=== PATIENT | male | born 1950 | race Caucasian/White ===

== ENCOUNTER → 2019-04-01 | Outpatient (CLI) | payer MEDICARE, OTHER ==
[~2019-04-01] MED LIST: ACE3 PO; ASPI-715 PO; CEF300 PO; DEXL60CA6 PO; FIBER PO; FIBER SUPPLEME283 GM PO; FLUT16SP20 NS; GEMF600T91 PO; GLUC-198 PO; GUALA600 PO; HYDR473S4 PO; IBU800 PO; IPRN; ITRA100C9 PO; LISI-357 PO; LYSI500C3 PO; NIA500 PO; OMEG-36 PO; PROAIRPT IH; PROM12.546 PO; RAN150 PO; UBID1CAP PO
== END ==
LOC: LAB 11:30
PROVIDERS: ATTEND Urology
DX: N40.1 Benign prostatic hyperplasia with lower urinary tract symptoms (principal)
CPT/HCPCS: 36415; 84153

== ENCOUNTER → 2019-04-29 | Outpatient (CLI) | payer MEDICARE, OTHER ==
[~2019-04-29] MED LIST changes: +REGADENOSON 0.4 MG/5 ML SYR ONE
--- NOTE | 2019-04-29 16:23 | RADIOLOGY IMAGING REPORT ---
FACILITY: [facility] [place] PATIENT NAME: Jose Collins : 1950 MR: [id number] V: [id number] EXAM DATE: ORDERING PHYSICIAN: ALEN REYNOLDS TECHNOLOGIST: Location: [facility] Patient: Jose Collins : 1950 Visit/Account:[id number] Date of Sevice: 04/29/2019 EXAMINATION: Single isotope SPECT imaging with regadenoson infusion and gated SPECT imaging. DATE OF EXAMINATION: 04/29/2019. DATE OF INTERPRETATION: 04/29/2019. REQUESTING PHYSICIAN: ALEN REYNOLDS. INDICATION: The patient is a 68-year-old female evaluated for shortness of breath. PROCEDURE: After informed consent the patient received an intravenous injection of 12.5 mCi of Tc-99 m sestamibi followed at an appropriate time interval by rest imaging. The patient then subsequently received an intravenous infusion of 0.4 mg of regadenoson per protocol without complication. Resting heart rate was 78 bpm with a peak heart rate of 100 bpm. Blood pressure at rest was 131 / 80 and fo llowing infusion was 133 / 59. Baseline EKG demonstrates sinus rhythm with nonspecific T wave abnorm ality. There were no EKG changes of ischemia following infusion. Symptoms were nonspecific. The pa tient then received an intravenous injection of 30.3 mCi of Tc-99m sestamibi followed by stress imagi ng. RAW DATA: Examination of the summed raw data revealed a fair quality study. MYOCARDIAL PERFUSION: The tomographic images demonstrate normal myocardial perfusion. GATED IMAGES: The gated images demonstrate normal LV wall motion and systolic function, LVEF 64%. IMPRESSION: 1. Nondiagnostic stress ECG performed with Lexiscan 2. Normal myocardial perfusion scan. 3. Normal LV systolic function; LVEF 64%. 4. Based on the results of this exam, the patient appears to be at low risk for future cardiovascular events, the risk becomes intermediate in the long-term estimation was unable to exercise. Report Dictated By: Neisha Schumacher at 04/29/2019 4:06 PM Report E-Signed By: Neisha Schumacher at 04/29/2019 4:15 PM WSN:[id number]
== END ==
LOC: NUC 00:48
PROVIDERS: ATTEND Nurse Practitioner Family
DX: E11.9 Type 2 diabetes mellitus without complications (principal); I10 Essential (primary) hypertension; E66.01 Morbid (severe) obesity due to excess calories; M62.81 Muscle weakness (generalized); R06.00 Dyspnea, unspecified
CPT/HCPCS: 78452; 93017; A9500; J2785

== ENCOUNTER 2019-05-07 00:40 | Day surgery (SDC) | payer MEDICARE, OTHER ==
[2019-04-01 11:53] LABS: PLATELET COUNT, AUTOMATED 284 K/uL (150-450)
[~2019-05-07] VITALS: Ht 177.8 cm; Wt 134.7 kg
[~2019-05-07 00:40] MED LIST changes: +ASPI-1471 PO; +CHOL10005 PO; +CRAN650C PO; +HYDR-2966 PO; +LACT1CAP6 PO; +LISI20TA29 PO; +OMEP40CA48 PO; +PRAV20TA65 PO; -REGADENOSON 0.4 MG/5 ML SYR ONE; +ROPI0.5T25 PO; +ZINC25CA2 PO; +[UNRECOGNIZED DRUG - OTHER] PO
[2019-05-07] MEDS ORDERED: PROPOFOL EMUL(*) 10MG/ML 20 ML 60 ML ONE (06:59)
[2019-05-07] MEDS ORDERED: LIDOCAINE MPF 1% 5 ML VIAL ONE (06:59)
[2019-05-07 07:55] VITALS: BP 139/81
[2019-05-07] MEDS ORDERED: LIDOCAINE/SOD BICARB 8.4% SYR ID ONE (08:00)
[2019-05-07] MEDS ORDERED: NORMOSOL R SOLN(*) 1000 ML BAG 1,000 ML IV PRN (08:00)
[2019-05-07 09:32] VITALS: BP 110/61
--- NOTE | 2019-05-07 09:42 | Short(Outpt) Discharge Summary ---
Discharge Summary Reason for Hosp/Final Diag: (1) Family history of colonic polyps Hospital Course & Plan: Colonoscopy completed without problems (normal). Departure Discharge to: Home, Self Care Discharge Instructions Home Meds Reported Medications Ropinirole Hcl (ROPINIROLE HCL) 0.5 Mg Tablet, 0.5 MG PO QDAY 05/02/19 Pravastatin Sodium (PRAVACHOL) 20 Mg Tablet, 20 MG PO QDAY, TAB 05/02/19 Aspirin (ASPIR 81) 81 Mg Tablet.dr, 81 MG PO QDAY, TAB 05/02/19 Cholecalciferol (Vitamin D3) (VITAMIN D3) 1,000 Unit Tablet, 5000 UNIT PO QDAY, TAB 05/02/19 Hydrochlorothiazide (HYDROCHLOROTHIAZIDE) 25 Mg Tablet, 0.5 TAB PO QDAY, TAB 05/02/19 Lactobacillus Combination No.4 (PROBIOTIC) 1 Each Capsule, 1 EACH PO QDAY, CAPSULE 05/02/19 Omeprazole (OMEPRAZOLE) 40 Mg Capsule.dr, 40 MG PO QDAY, CAP 05/02/19 Zinc Acetate (GALZIN) 25 Mg Capsule, 30 MG PO QDAY, CAPSULE 05/02/19 [Pycnogneol] No Conflict Check, 1 TAB PO BID 05/02/19 Cranberry Extract (THERACRAN) 650 Mg Capsule, 650 MG PO BID, CAPSULE 05/02/19 Lisinopril (LISINOPRIL) 20 Mg Tablet, 20 MG PO BID, TAB 05/02/19 Albuterol Sulfate (Proair Hfa) 8.5 Gm Aer.w.adap, 8.5 GM IH QID PRN, 0 Refills 10/21/10 [place]-3 Fatty Acids/Fish Oil ([place] 3 Fish Oil Softgel) 1 Each Capsule.dr, 2 EACH PO QDAY, 0 Refills 10/21/10 Ubidecarenone/Vitamin E Mixed (Coq10 Sg 100 Softgel) 1 Cap Capsule, 1 CAP PO QDAY, 0 Refills 10/21/10 [Fiber] No Conflict Check, 2 CAP PO BID, 0 Refills 10/21/10 Discontinued Reported Medications Chlorphenir/Hydrocod Polistir (Tussionex Pennkinetic Susp) 473 Ml Radha.12h.sr, 5 ML PO BID PRN, 0 Refills 10/21/10 Ipratropium [place] (Atrovent 0.3% Nasal) 21 Mcg [place], 0 NA BID, 0 Refills SPRAY TWO SPRAYS IN EACH NOSTRIL 10/21/10 Fluticasone Propionate (Flonase) 16 Gm [place], 2 KUMAR NS QD PRN, 0 Refills 10/21/10 Itraconazole (Itraconazole) 100 Mg Capsule, 2 CAP PO BID, 0 Refills 10/21/10 Ranitidine Hcl (Zantac) 150 Mg Tab, 150 MG PO BID, 0 Refills 10/21/10 Dexlansoprazole (Dexilant) 60 Mg Cap., 60 MG PO QDAY, 0 Refills 10/21/10 Cefdinir (Omnicef) 300 Mg Cap, 300 MG PO BID for 14 Days, 0 Refills 10/21/10 Gemfibrozil (Gemfibrozil) 600 Mg Tablet, 600 MG PO BID, 0 Refills 10/21/10 Niacin (Niaspan) 500 Mg Tab, 1000 MG PO DAILY, 0 Refills 10/21/10 Lisinopril (Lisinopril) 5 Mg Tablet, 5 MG PO DAILY, 0 Refills 10/21/10 Diet: Regular Activity: As Tolerated Special Instructions: Your colonoscopy was completed without problems and your prep was excellent (Good Job!!). I didn't find any polyps or other problems in your colon. Because of the large polyp found in your mother, I recommend that your next colonoscopy be in 5 years. SAL DE LA TORRE MD May 07, 2019 09:41
[2019-05-07 10:00] VITALS: BP 126/72
[2019-05-07 10:14] VITALS: BP 121/74
[2019-05-07 10:15] VITALS: BP 116/73
== END 2019-05-07 10:30 | disposition home or self-care (01) ==
LOC: OR 00:40
PROVIDERS: ATTEND Surgery
DX: Z12.11 Encounter for screening for malignant neoplasm of colon (principal); Z83.71 Family history of colonic polyps
CPT/HCPCS: 00812; G0121; J2001; J2704; 85025